=== PATIENT | female | born 1965 | race African-American/Black ===

== ENCOUNTER 2017-08-11 11:09 | Emergency (ER) | payer MEDICAID, OTHER ==
[~2017-08-11] VITALS: Ht 157.5 cm; Wt 85.0 kg
[2017-08-11] MEDS ORDERED: KETOROLAC 60MG/2ML VIAL IM ONE (12:15)
[2017-08-11 12:33] VITALS: BP 158/100
== END 2017-08-11 12:45 | disposition home or self-care (01) ==
LOC: ER 11:38
DX: M54.40 Lumbago with sciatica, unspecified side (principal); I10 Essential (primary) hypertension
CPT/HCPCS: 96372; 99283; J1885

== ENCOUNTER 2018-11-19 18:00 | Emergency (ER) | payer OTHER | END 2018-11-19 19:25 | disposition left against medical advice (07) | LOC: ER 18:00 | DX: Z53.21 Procedure and treatment not carried out due to patient leaving prior to being seen by health care provider (principal) ==

== ENCOUNTER 2023-07-30 17:54 | Emergency (ER) | payer MEDICAID, OTHER ==
[~2023-07-30] VITALS: Ht 162.6 cm; Wt 75.0 kg
[2023-07-30 18:06] VITALS: BP 132/98; PULSE 102; RESP 18; TEMP 98.2; O2SAT 99
[2023-07-30] MEDS ORDERED: TRIA1TAB94 MT (18:26)
== END 2023-07-30 18:42 | disposition home or self-care (01) ==
LOC: ER 17:54
DX: I10 Essential (primary) hypertension (principal); Z98.890 Other specified postprocedural states; Z76.0 Encounter for issue of repeat prescription
CPT/HCPCS: 99283